=== PATIENT | female | born 1965 ===

== ENCOUNTER 2022-12-09 11:34 | Outpatient (AMB) | payer OTHER, SELFPAY ==
[2022-12-09 11:40] VITALS: BMI 30.3
--- NOTE | 2022-12-09 11:40 | A.OFFVIS_ITS ---
Intake VS Expanded 12/09/22 11:40 12/10/22 21:51 Height 5 ft 4 in 5 ft 4 in Weight 176 lb 12.972 oz 177 lb BMI 30.3 30.4 Intake Visit Reasons: WT Gain HPI Nutrition Presentation Details Pt presents for MNT for weight gain. Pt was referred by primary care provider, Sandy Gutierrez APRN from [facility] Pt reports having gained > 10 lbs in a year Pt reports having 3 meals per day and choosing high fiber foods B: mostly oatmeal almond milk/walnuts berries flaxseed L/snack fruits/salads 7pm : starch/prot/veg/dessert, wine coffee black 2 c /d water: 16-24 oz/d fruit 2/d ve /d protein :6-8 oz/d dairy: 3 serving/d, incorporating calcium and vit d fortified alternatives starches > 15 serving/d pastries an the like daily physical activity: 30 min to 1 hr 3 x/wk QWC-Mycdpnt-Dl.Jeor Equation Height 5 ft 4 in Weight 177 lb Resting Metabolic Rate 1391.38 Calculated Activity Level Mild Activity Calories Needed to Maintain Weight 1913.15 Diagnosis Nutrition problem #1 excessive energy intake As related to (etiology) #1 diagnosis As evidenced by (sign/symptom) #1 high BMI (30.4 on 11/2022) and weight gain (reports gradual wt gain >10 lbs in >1 yr) Monitoring/Goals Nutrition problem monitoring level of knowledge/skill and weight Nutrition goal/outcome wt loss 5lbs in 2 months Outcome progress verbalized understanding Learning/Education Readiness to learn good Stages of change action Educational materials provided Yes (meal substitutions) Most Recent Diabetes Results: No Data to Display Assessment & Plan Assessment & Plan (1) Obesity (BMI 30.0-34.9): Comment: BMI 30.4 on 11/2022 Code(s): E66.9 - Obesity, unspecified Plan: wt: 80 kg Est kcal needs as per MSJ: 1900 (40% carb, 30% protein/fat) Est fluid needs as per 30 ml/d: 2400 Est prot per day as per 1 g/kg bw: 80 Recommend fiber intake : 8-10 g per day and gradually increase to 25-28 g per day for women and 35-38 g for men or as tolerated Recommend sodium intake per day : less than 2000 mg Educated patient on: ( R = reviewed V = verbalizes understanding N/R = needs review N/A = not applicable * Food sources of carbohydrate, adequate serving sizes and its role in various health conditions: R ,V * Differences between complex carbohydrates a simple carbohydrates, role of fiber in diet: R V * Differences between types of fats and role in diet (mono on saturated fat fatty acids, saturated fatty acids, trans fats): R basic low fat * Food sources of sodium in salt and healthy modifications for heart health in kidney health: NR * Vitamins and minerals: R * Healthy plate method concept: R V * Physical activity: Benefits a precaution: R V * Mindful eating strategies: R, V Patient Instructions: Have a meal replacement at lunch time - see list of choices practice mindful eating continue with physical activity goal 150 min per week Have water with meals/snacks keeping hydrated Coding Level of Care Code Nutr Indiv Intake (97569) Diagnoses Obesity (BMI 30.0-34.9) E66.9 Time Spent (min) 30
[2022-12-10 21:51] VITALS: BMI 30.4
== END 2022-12-09 12:11 | disposition home or self-care (01) ==
PROVIDERS: Visit Provider Dietitian, Registered
DX: E66.9 Obesity, unspecified (principal)

== ENCOUNTER → 2022-12-09 11:34 | Outpatient (BNVA) | payer OTHER, SELFPAY | PROVIDERS: Visit Provider Dietitian, Registered | DX: E66.9 Obesity, unspecified (principal); Z68.30 Body mass index [BMI] 30.0-30.9, adult; Z71.3 Dietary counseling and surveillance | CPT/HCPCS: 97802 ==